=== PATIENT | male | born 1990 | race Caucasian/White ===

== ENCOUNTER → 2019-10-25 09:38 | Outpatient (CLI) | payer OTHER, SELFPAY ==
--- NOTE | 2019-10-25 | DI.MRI.S_ITS ---
PROCEDURE: MR LUMBAR SPINE WO/W CON INDICATIONS: Radiculopathy, lumbar region TECHNIQUE: Noncontrast sagittal T1 spin echo and T2 fast spin echo, sagittal STIR, axial T1 and T2 fast spin echo through the lumbar spine. In cases with scoliosis, additional coronal T2 fast spin echo may be performed. After the administration of contrast, sagittal and axial T1 spin echo with fat saturation through the lumbar spine. COMPARISON: None. FINDINGS: Image quality: Excellent. Alignment and curvature: There is normal bony alignment. Marrow: Marrow is of normal overall signal. No acute vertebral body compression fractures. No suspicious marrow enhancement. Spinal cord: Conus medullaris terminates at the L1 level. Visualized spinal cord demonstrates normal signal, without suspicious enhancement. Paraspinous soft tissues: No paravertebral masses or abnormal enhancement. T12-L1: Normal appearance. L1-L2: Normal appearance. L2-L3: Normal appearance. L3-L4: Normal appearance. L4-L5: The disc height and disc signal are relatively well-preserved. Mild disc bulge is seen. Sygz-mj-wehlavmn facet hypertrophy is seen. There is mild to moderate bilateral neural foraminal narrowing seen. Mild central canal narrowing is seen. L5-S1: Moderate disc bulge is seen, with a central disc extrusion, with an associated annular fissure. There is enhancement seen along the annular fissure. Mild to moderate facet hypertrophy is seen. There is mild to moderate right-sided and mild left-sided neural foraminal narrowing seen. Moderate central canal narrowing is seen. IMPRESSION: There is a focal disc extrusion seen at L5-S1, with associated degenerative change. Mild degenerative change is seen at L4-L5. Dictated by: Torey Rodrigues M.D. on 10/25/2019 at 10:55 Approved by: Torey Rodrigues M.D. on 10/25/2019 at 10:58
== END ==
PROVIDERS: PCP Family Medicine; Referring Provider Orthopaedic Surgery; Visit Provider Orthopaedic Surgery
DX: M51.17 Intervertebral disc disorders with radiculopathy, lumbosacral region (principal); M47.26 Other spondylosis with radiculopathy, lumbar region
CPT/HCPCS: 72158

== ENCOUNTER → 2020-01-17 08:23 | Outpatient (CLI) | payer OTHER, SELFPAY ==
[2020-01-17 09:51] LABS: Add Manual Diff / Slide Review NO; Basophils Absolute Auto 0 /uL (0-100); Basophils Percent Auto 0.2 % (0-2); Eosinophils Absolute Auto 200 /uL (0-450); Eosinophils Percent Auto 3.5 % (2-4); Hematocrit 41.6 % (41-53); Hemoglobin 14.4 g/dL (13.5-17.5); Lymphocytes Absolute Auto 2300 /uL (1100-4500); Lymphocytes Percent Auto 34.3 % (25-40); Mean Corpuscular HGB Conc 34.6 % (30-36); Mean Corpuscular Hemoglobin 32.4 PG (26-34); Mean Corpuscular Volume 93.6 fL (80-100); Monocytes Absolute Auto 600 /uL (0-900); Monocytes Percent Auto 9.4 % (3-14); Neutrophils Absolute Auto 3500 /uL (1500-7000); Neutrophils Percent Auto 52.6 % (50-75); Platelet Count 254 X10^3/uL (150-400); Red Blood Cell Count 4.44 X10^6/uL (4.5-5.9); Red Cell Distribution Width 12.9 % (11.6-14.8); White Blood Cell Count 6.7 X10^3/uL (4.5-11.0)
[2020-01-18 10:46] LABS: COVID19 Sendout NOT DETECTED (Not Detect)
== END ==
PROVIDERS: PCP Family Medicine; Referring Provider Orthopaedic Surgery; Visit Provider Registered Nurse
DX: Z11.59 Encounter for screening for other viral diseases (principal)
CPT/HCPCS: 36415; 85025; 87635

== ENCOUNTER 2020-01-19 09:57 | Day surgery (SDC) | payer OTHER, SELFPAY ==
[2020-01-16 13:03] VITALS: BMI 32.5
[2020-01-19] VITALS (18 sets, daily range): BP systolic 97–138; BP diastolic 58–84; PULSE 67–115; RESP 10–18; TEMP 35.9–37.2; O2SAT 94–99; BMI 32.5
--- NOTE | 2020-01-19 | DI.RAD.S_ITS ---
PROCEDURE: XR LUMBAR SPINE 2-3V INDICATIONS: L5-S1 TLIF TECHNIQUE: 2 views of the lumbar spine were acquired. COMPARISON: [facility], [place], XR LUMBAR SPINE 2 OR 3 VIEWS, 10/12/2019, 10:18. FINDINGS: Bones: Normal alignment established after L5-S1 posterior fusion by transverse pedicle screws and bilateral vertical fixation rods with a interbody disc cage prosthesis centrally at the L5-S1 disc level. Soft tissues: Overlying bowel gas pattern is normal. No suspicious soft tissue calcifications. IMPRESSION: Normal alignment established after L5-S1 fusion is noted. Dictated by: Chris Tavarez M.D. on 01/19/2020 at 14:36 Approved by: Chris Tavarez M.D. on 01/19/2020 at 14:37
[2020-01-19] MEDS: LACTATED RINGERS 1,000 ML 42 ML IV ×2 (10:17→13:27)
--- NOTE | 2020-01-19 10:47 | PM.PREOP ---
Pre-operative Note COVID-19 COVID-19 status: Negative Result date/Date tested (Pos, Neg/Pending): 01/17/20 Interval Note History & Physical reviewed/Exam performed by Physician: Yes Changes to H&P: No
[2020-01-19] MEDS: CEFAZOLIN 2 GM/100 ML FROZ.PIGGY IV ×2 (10:50→18:07)
[2020-01-19] MEDS: VANCOMYCIN 1,000 MG VIAL 1000 MG TOP (11:58)
[2020-01-19] MEDS: THROMBIN (RECOMBINANT) 5,000 UNIT VIAL 5000 UNIT TOP (11:59)
[2020-01-19] MEDS: SODIUM CHLORIDE 0.9% 1,000 ML, GENTAMICIN 80 MG IRR (11:59)
[2020-01-19] MEDS: BUPIVACAINE 0.5% (PF) 4 ML, MORPHINE-PF 4 MG, BUTORPHANOL 1 MG, fentaNYL 100 MCG INJ (12:00)
--- NOTE | 2020-01-19 12:02 | SUR.OPER ---
Prone on spine table, head in foam head support, padded chest and pelvic supports, gel pad at knees, lower legs supported by pillows; nipples, genitalia and toes free of pressure, arms secured on foam padded arm boards at <90 degrees abduction. Tape over blanket at thigh secured to table.
--- NOTE | 2020-01-19 14:02 | P.OP_ITS ---
Operative Date/Time/Diagnoses Date of procedure: 01/19/20 Time of procedure: 14:02 Pre-op diagnosis: History of lumbar laminectomy Recurrent lumbar disc herniation with radiculopathy Post-op diagnosis: same Procedure & Clinicians Procedure: L5-S1 TLIF (posterior/posterior interbody fusion) with cage L5-S1 screws Iliac crest bone graft aspirate Revision laminectomy L5-S1 Use of microscope Placement of epidural catheter Same procedure as scheduled: Yes Indications: [age] year old male with intractable pain from a recurrent disc herniation. They had failed conservative management and requested operative intervention. Risks and benefits of surgery were discussed and appropriate consents were obtained. Surgeon: Bashir Coyne [employer] Education Teacher: Lorraine Junior Anesthesia Type: General Operative Notes Findings: None Closure Type: primary Specimen(s): none sent Prosthetic devices, grafts, tissues, transplants, or devices: NuVasive MAS Reline screws Globus Rise cage Applied: catheter Estimated Blood Loss (mL): 75 Blood products transfused: none Procedure in detail: The patient was brought to the operating room and intubated on the table. A time-out was performed. They were then rolled over to the well- padded Akash table in the prone position. Preoperative antibiotics were given. The back was prepped and draped in the standard sterile fashion. Using fluoroscopy, a 4 cm longitudinal incision was made to the well-marked left of the midline. We used Bovie to come down to and split the lumbodorsal fascia. Using fluoroscopy and monitoring, we then percutaneously placed Jamshidi needles down the pedicles of L5 and S1 on the left side. These were changed out to guidewires and then we tapped and then placed the NuVasive MAS Reline screw shanks. We then opened up the retractors and used Bovie to clear up the posterolateral gutter as well as medially along the lamina to the spinous processes. A bur was used to decorticate the transverse processes. We brought in the microscope. Using a combination of bur and Kerrison rongeurs, a revision L5-S1 laminectomy and diskectomy was performed. We went to the midline but the scar prevented further decompression from there. We worked out laterally and exposed the dura and the nerve roots. These were retracted medially but we had to deal with scar tissue for this and carefully dissected them further medially clearing off the scar tissue. The disc was prepped with bipolar and an annulotomy was performed and the disc fragments were removed with the pituitary. This was separate and distinct from a TLIF approach as there was scar tissue and we had to work through this on the revision diskectomy. We then began the TLIF prep. A complete facetectomy was performed on this side at L5-S1. We carefully cleaned up the remainder of the foramen until we could easily retract the exiting root as well as clearing medially below the dura and expose the disc space. The disc was prepped with bipolar and then an annulotomy was performed. We performed a diskectomy using a combination of paddles, anurag, pituitaries, and curettes. We distracted the disc using a paddle and locked the retractor in an open position. We then filled the disc space with Osteocel bone graft. We then placed the globus Rise cage under fluoroscopy and then filled this in with more bone graft. The distraction on the retractor was released to compress down. This completed the posterior interbody fusion portion of the TLIF at L5-S1. We then placed the screw heads, lyle, and locked down the set screws. The wound was copiously irrigated. A small stab incision was made over the PSIS. We used a Jamshidi needle to aspirate several mL of bone marrow from the pelvis. This was mixed with the remaining Osteocel and combined with all of the locally harvested bone graft and placed in the posterolateral gutter for the posterior fusion of the TLIF at L5- S1. An epidural catheter was then placed in the spinal canal by carefully depressing the dura and advancing it 6 cm cephalad under the remaining lamina without resistance. The muscle fascia was closed. The catheter was then injected with a solution containing 4 mL of 0.5% Marcaine, 1 mg Stadol, 4 mg Duramorph, and 100 mcg of fentanyl. This was injected without resistance and the catheter was pulled. We then went to the opposite side. Again using fluoroscopy, a 3 cm incision was made and Bovie was used to come down to split the fascia. Using neural monitoring and fluoroscopy, Jamshidi needles were advanced down the pedicles of [] on the [] side. These were switched over guidewires, tapped, and screws placed. We then placed a lyle and locked the set screws on this side. The wound was irrigated. The fascia was closed. Vancomycin powder was placed in the wounds. The superficial and skin were closed. A sterile dressing was placed. The patient was then rolled over extubated and brought to recovery room without complications. Complications: none Post-operative Condition: stable Disposition: PACU Plan for aftercare: Overnight admission. Anticipate 2 days hospitalization time. Up with physical therapy.
[2020-01-19] MEDS: MEPERIDINE 100 MG/ML INJ 25 MG IV (14:15)
[2020-01-19] MEDS: fentaNYL 100 MCG/2 ML INJ IV ×2 (14:20→14:49)
[2020-01-19] MEDS: HYDROMORPHONE 2 MG INJ IV ×3 (14:42→15:11)
[2020-01-19] MEDS: LACTATED RINGERS 1,000 ML 125 ML IV (16:43)
[2020-01-19] MEDS: OXYCODONE IR 10 MG TABLET PO (16:43)
[2020-01-19] MEDS: hydrOXYzine pamoate 25 MG CAPSULE PO (18:07)
[2020-01-19] MEDS: HYDROMORPHONE 0.5 MG INJ IV (18:07)
[2020-01-19] MEDS: DOCUSATE 100 MG CAPSULE PO (20:02)
[2020-01-19] MEDS: GABAPENTIN 300 MG CAPSULE PO (20:02)
[2020-01-19] MEDS: SENNOSIDES 8.6 MG TABLET 17.2 MG PO (20:03)
[2020-01-19] MEDS: OXYCODONE IR 5 MG TABLET 15 MG PO ×2 (20:03→23:19)
[2020-01-20] MEDS: CEFAZOLIN 2 GM/100 ML FROZ.PIGGY IV (02:15)
[2020-01-20] MEDS: OXYCODONE IR 5 MG TABLET 15 MG PO ×5 (02:15→14:27)
[2020-01-20] MEDS: LACTATED RINGERS 1,000 ML 125 ML IV (02:17)
[2020-01-20 04:32] VITALS: BP 115/69; PULSE 97; RESP 18; TEMP 37.1; O2SAT 94
[2020-01-20 06:08] LABS: Hematocrit 39.5 % (41-53); Hemoglobin 13.8 g/dL (13.5-17.5)
[2020-01-20 08:00] VITALS: BP 130/63; PULSE 110; RESP 16; TEMP 36.6; O2SAT 95
[2020-01-20] MEDS: DOCUSATE 100 MG CAPSULE PO (08:20)
[2020-01-20] MEDS: ACETAMINOPHEN 325 MG TABLET 650 MG PO (08:20)
--- NOTE | 2020-01-20 10:17 | P.PN_ITS ---
Subjective Subjective Date Patient Seen: 01/20/20 Time Patient Seen: 10:17 Interval history: He is doing very well. Pain is about a 2/10 right now. No leg symptoms. He has been moving around in bed but not up with therapy yet. Exam Vital Signs (past 8 hours): - 01/20/20 04:32 01/20/20 08:00 Temperature 98.8 F 97.8 F Pulse Rate 97 H 110 H Respiratory Rate 18 16 Blood Pressure 115/69 130/63 Pulse Oximetry 94 95 Oxygen Delivery Method Room Air Oxygen Flow Rate 0 Const Orientation: alert and oriented x3 Back/Spine/Pelvis Other: Mild drainage. 5/5 motor both lower extremities Objective Labs Result Diagrams: 01/20/20 05:50 Labs: Laboratory Results - last 24 hr 01/20/20 05:50 Hgb 13.8 Hct 39.5 L Assessment & Plan Post-op Postoperative Procedures: Procedures Operation Date: 01/19/20 10:15 Actual Procedures Side Surgeon p L5S1 revision laminectomy & instrumentated fusion w. bone graft Bashir holland MD He is doing great. We're going to get him up with physical therapy. He feels like he is ready to go home and will discharge him a if he passes therapy. Quality VTE Deep Vein Thrombosis/Pulmonary Embolism Present on Admission: Yes
--- NOTE | 2020-01-20 11:09 | OT.IP.EVAL ---
Current Diagnoses Intervertebral disc disorders with radiculopathy, lumbar region (01/19/20) Strain of muscle, fascia and tendon of lower back, subsequent encounter (01/19/20) Other specified postprocedural states (01/19/20) Surgery Performed Operation Date: 01/19/20 10:15 Actual Procedures p L5S1 revision laminectomy & instrumentated fusion w. bone graft - Bashir Coyne MD Past Medical History (Last Updated 01/16/20 @ 13:07 by Mela Gannon RN) Arthritis (Acute) Sciatica of left side (Acute) Surgical History (Last Updated 01/16/20 @ 13:07 by Mela Gannon RN) History of photorefractive keratectomy (PRK) (Acute) Hx of laminectomy (Acute) Occupational Therapy Inpatient Evaluation/Re-Eval M1 PT/OT-IP Prior Functional Status Start: 01/20/20 14:02 Freq: NEEDED Status: Active Protocol: Document 01/20/20 14:04 [facility] (Rec: 01/20/20 14:31 [facility] [id number]) Medical Review Prior Functional Status Medical History Reviewed Yes Communication Independent Mobility and Gait Independent with no devices. Activities of Daily Living and IADL's Pt states needing increased time to tie his shoes. Prior Functional Level (Other details) Pt lives with his who is 8 1/ 2 months and 5 year old. Pt states his neighbors are able to assist as well for needs such as as taking out the trash or taking out the dogs. Social History Household Members spouse,children Living Arrangements House Number of Floors (Floors) One Floor Number of Stairs To Enter/Railing? 0 steps to enter. Home Environment High Toilet,Walk in Shower,Tub /Shower,Bidet Home Equipment Front Wheel Walker,Shower Seat with Backrest Employment Status Active Duty M2 OT-IP Current Condition Start: 01/20/20 14:02 Freq: Status: Active Protocol: Document 01/20/20 14:04 [facility] (Rec: 01/20/20 14:31 [facility] [id number]) Occupational Therapy Current Condition Current Condition Evaluation Date 01/20/20 Treatment Diagnosis Recurrent disc herniation with radiculopathy, S/P L5-S1 TLIF Diagnosis Onset Date 01/19/20 Post Operative Precautions Lumbar Precautions Log Roll,No Twisting,Limit Bending,Lifting Restriction of 10 lbs,Gait Belt above Incisional Area Weight Bearing Status Weight Bearing Status Weight Bear as Tolerated M3 OT- IP Subjective and Pain Start: 01/20/20 14:02 Freq: Status: Active Protocol: Document 01/20/20 14:04 [facility] (Rec: 01/20/20 14:31 [facility] [id number]) OT- Subjective Occupational Therapy Visit Type Type Initial Evaluation Visit Start Time 10:08 Visit Stop Time 11:09 Total Visit Minutes 59 Occupational Therapy Visit Comments Patient Comments Pt pleasant, cooperative and willing to get up for OT eval. 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 OT Pain Assessment Pain When Pain Assessed At Rest Pain Present Pain Present Pain Reported Location Lower Back Intensity 5 Scale Used Numeric (0 - 10) M4 OT- IP ADL's Start: 01/20/20 14:02 Freq: Status: Active Protocol: Document 01/20/20 14:04 [facility] (Rec: 01/20/20 14:31 [facility] [id number]) OT CHB-Jofb-Ioawoan General Evaluation Self-Feeding Ability Independent OT ADL-Grooming General Evaluation Grooming Ability Independent Comments OT Grooming Comments Vc to bend at his hips in order to spit into the sink. OT ADL-Oral Care General Eval Oral Care Ability Independent OT ADL-Dressing General Eval Lower Body Dressing Ability Maximum Assistance Assistive Devices Dressing Assistive Devices Long Handled Shoe Horn,Papier Mache Molder ,Sock Aid Comments OT Dressing Comments LB dressing training for use of radio broadcaster, sock aid and now able to do his socks on his own. Pt educated to jasmin his right LE first due to weakness and then for left LE. OT ADL-Toileting General Evaluation Toileting Ability Total Assistance Comments OT Toileting Comments Golden still in. Pt states has a bidet at home. Pt also educated easier to stand for hygiene needs. OT ADL-Bathing Comments OT Bathing Comments Pt not wanting to shower at this time. M5 OT- IP IADL's Start: 01/20/20 14:02 Freq: Status: Active Protocol: Document 01/20/20 14:04 [facility] (Rec: 01/20/20 14:31 [facility] [id number]) OT-Instrumental Activities of Daily Living Home Safety Awareness Awareness of Need for Assistance at Home Good Awareness Ability to Problem Solve Emergency Able to Problem Solve Situations Medication Management Medication Management No Deficits Identified Money Management Money Management No Deficits Identified Meal Preparation Meal Preparation Caregiver Provides Assist Group Home Supervisor Group Home Supervisor Caregiver Provides Assist Group Home Supervisor Comments Neighbors to assist. M6 OT- IP Functional Cognition Start: 01/20/20 14:02 Freq: Status: Active Protocol: Document 01/20/20 14:04 [facility] (Rec: 01/20/20 14:31 [facility] [id number]) Cognitive Factors Limiting Selfcare Function Cognitive Ability Level of Alertness Alert Patient Orientation Name,Age,Birthday,Month,Date, Year,Day of Week,Place, Situation Attention Span Ability Capable of Focused Attention, Capable of Sustained Attention Ability to Follow Commands Able to Follow Multi-Step Commands Memory Description No Deficits Noted Safety Awareness No Deficits Noted Problem Solving Ability No deficits Noted Cognitive Comments Cognitive Assessment Comments Pt doing well and only needing initial education for log rolling needs and to come from sit to stand to FWW. OT- Vision and Hearing OT- Hearing Assessment OT- Hearing Assessment WFL OT- Vision Assessment Visual Acuity WFL M7 OT- IP Mobility and Balance Start: 01/20/20 14:02 Freq: Status: Active Protocol: Document 01/20/20 14:04 [facility] (Rec: 01/20/20 14:31 [facility] [id number]) OT- Bed Mobility Assessment Rolling Level of Assistance Standby Assistance Supine to Sit Supine to Sit Assist Standby Assistance Sit to Supine Sit to Supine Assist Independent Scooting Scooting to Edge of Bed Independent OT-Transfer Assessment Sit to and From Stand Sit to and from Stand Standby Assistance Transfers Transfer Ability Standby Assistance Technique Transfer Destination Bed,Chair Transfer Technique Stand Step Pivot Devices Transfer Assistive Devices Gait Belt,Front Wheeled Walker Comments Mobility Comments VC for bed mobility initially. Pt plans to sleep on the recliner at home initially if needed. SBA with FWW, left leg tends to buckle and needing cues to keep his leg straight/tightened. OT- Gait Assessment Comments Gait Ability Comments SBA with FWW. OT- Balance Assessment Sitting Balance and Reactions Static Sitting Balance Ability Normal Dynamic Sitting Balance Ability Normal Standing Balance and Reactions Static Standing Balance Ability Normal Dynamic Standing Balance Ability Good M8 OT- IP Objective Assessments Start: 01/20/20 14:02 Freq: Status: Active Protocol: Document 01/20/20 14:04 [facility] (Rec: 01/20/20 14:31 [facility] [id number]) OT Gross Range of Motion Upper Extremity Range of Motion Assessment Within Functional Limits OT Strength Upper Extremity Strength Assessment Within Functional Limits OT-Muscle Tone Assessment Muscle Tone WNL Yes M9 OT- IP Assessment and Plan Start: 01/20/20 14:02 Freq: Status: Active Protocol: Document 01/20/20 14:04 [facility] (Rec: 01/20/20 14:31 [facility] [id number]) OT Summary Assessment and Plan Potential Rehabilitation Potential Good Analytic Complexity at Evaluation Low Summary OT Impairments Functional Mobility,Dressing, Toileting,Bathing,Shower Transfers Progress Towards Goals Progressing Toward Goals Assessment Summary Pt low complexity with main barriers are weakness in his legs, now needing use of adaptive equipment for LB dressing needs, and now will needing assist for IADL needs. Pt has good understanding for ADL needs and LB dressing equipment given. Pt to go home today with to assist . Goals Bathing Goal Independent Shower Transfer Goal Independent Patient/Caregiver Education Goal Demonstrate Post-Op Precautions Days to Meet Goals 1 Frequency of Treatment Frequency Of Treatment Once a Day Treatment Plan OT Treatment Plan ADL Training,Functional Mobility,Patient/Family Education,Discharge Planning Other Treatment Recommendations and Next Shower if still present. Treatment Focus Discharge Recommendations OT Discharge Recommendations Home with Assistance Transportation Needs at Discharge Private Vehicle
--- NOTE | 2020-01-20 11:28 | PT.IIE ---
Current Diagnoses Intervertebral disc disorders with radiculopathy, lumbar region (01/19/20) Strain of muscle, fascia and tendon of lower back, subsequent encounter (01/19/20) Other specified postprocedural states (01/19/20) Surgery Performed Operation Date: 01/19/20 10:15 Actual Procedures p L5S1 revision laminectomy & instrumentated fusion w. bone graft - Bashir Coyne MD Surgical History (Last Updated 01/16/20 @ 13:07 by Mela Gannon RN) History of photorefractive keratectomy (PRK) (Acute) Hx of laminectomy (Acute) Medical History (Last Updated 01/16/20 @ 13:07 by Mela Gannon RN) Arthritis (Acute) Sciatica of left side (Acute) Physical Therapy Inpatient Evaluation/Re-Eval M1 PT/OT-IP Prior Functional Status Start: 01/20/20 14:02 Freq: NEEDED Status: Active Protocol: Document 01/20/20 14:04 [facility] (Rec: 01/20/20 14:31 [facility] [id number]) Medical Review Prior Functional Status Medical History Reviewed Yes Communication Independent Mobility and Gait Independent with no devices. Activities of Daily Living and IADL's Pt states needing increased time to tie his shoes. Prior Functional Level (Other details) Pt lives with who is 8 1/ 2 months and 5 year old. Pt states his neighbors are able to assist as well for needs such as as taking out the trash or taking out the dogs. Social History Household Members spouse,children Living Arrangements House Number of Floors (Floors) One Floor Number of Stairs To Enter/Railing? 0 steps to enter. Home Environment High Toilet,Walk in Shower,Tub /Shower,Bidet Home Equipment Front Wheel Walker,Shower Seat with Backrest Employment Status Active Duty M1 PT/OT-IP Prior Functional Status Start: 01/20/20 14:34 Freq: NEEDED Status: Active Protocol: Document 01/20/20 11:28 AB (Rec: 01/20/20 14:56 AB [id number]) Medical Review Prior Functional Status Medical History Reviewed Yes Communication able to make needs known Mobility and Gait pt stated that he is independent with all mobilities and ambulation without AD Activities of Daily Living and IADL's per OT notes: Pt states needing increased time to tie his shoes. Prior Functional Level (Other details) Pt lives with who is 8 1/ 2 months and 5 year old daughter. Pt states his neighbors are able to assist when needed. Social History Household Members spouse,children Living Arrangements House Number of Floors (Floors) One Floor Number of Stairs To Enter/Railing? no steps to enter. Home Environment High Toilet,Walk in Shower,Tub /Shower,Bidet Home Equipment Front Wheel Walker,Shower Seat with Backrest,Hand Held Shower,Grab Bars Near Toilet, Grab Bars In Shower Employment Status Active Duty M2 PT-IP Current Condition Start: 01/20/20 14:34 Freq: NEEDED Status: Active Protocol: Document 01/20/20 11:28 AB (Rec: 01/20/20 14:56 AB [id number]) Physical Therapy Current Condition Current Condition Evaluation Date 01/20/20 Treatment Diagnosis s/p L5S1 TLIF; difficulty in walking Onset Date 01/19/20 Precautions Lumbar Precautions Log Roll,No Twisting,Limit Bending,Lifting Restriction of 10 lbs,Gait Belt above Incisional Area M3 PT-IP Subjective Start: 01/20/20 14:34 Freq: NEEDED Status: Active Protocol: Document 01/20/20 11:28 AB (Rec: 01/20/20 14:56 AB [id number]) Subjective Physical Therapy Visit Type Type Initial Evaluation Visit Start Time 11:28 Visit Stop Time 11:52 Total Visit Minutes 24 Number of BICYCLE REPAIRMAN Visits 0 Physical Therapy Visit Comments Patient Comments pt is agreeable to do PT Therapy Pain Assessment Pain When Pain Assessed At Rest Pain Present Pain Present Pain Reported Location Lower Back Intensity 6 Scale Used Numeric (0 - 10) Pain Management Techniques Modification of Treatment,Re- positioning,Timing of Activity with Medications M4 PT-IP Mobility and Gait Start: 01/20/20 14:34 Freq: NEEDED Status: Active Protocol: Document 01/20/20 11:28 AB (Rec: 01/20/20 14:56 AB [id number]) PT-Bed Mobility Assessment Rolling Type of Rolling Log Rolling Supine to Sit Supine to Sit Standby Assistance Sit to Supine Sit to Supine Standby Assistance Scooting Scooting to Edge of Bed Standby Assistance Scooting Up and Down in Bed Standby Assistance PT-Transfer Assessment Sit to and From Stand Sit to and from Stand Standby Assistance,1 Person Assistance,Use of Upper Extremities Equipment Transfer Assistive Device Gait Belt,Front Wheeled Walker Orthotic/Prosthetic Devices or Brace: No Transfers Transfer Destination Bed Transfer Technique Stand Step Pivot Transfer Ability Level of Assist Standby Assistance,1 Person Assistance,Use of Upper Extremities Comments Mobility Comments pt sitting on chair. completed sit to stand SBA but with difficulty and transferred to bed using fWW SBA. completed log roll supine <>sit SBA. educated pt on techniques for sit to stand but pt with (+) L knee buckling and has to rely a lot on BUE to get to standing. completed ambulation 40 + 250 ft using FWW SBA and cues for L quad activation. no LOB or knee giving out noted. pt ambulated back to his room and agreed to sit up on chair. call light and table placed within reach. Gait Assessment Gait Gait Assistance Required: Standby Assistance Distance (Feet) 250 Able to Maintain Weight Bearing Status Yes During Gait Assistive Devices Assistive Device Gait Belt,Front Wheeled Walker Orthotic/Prosthetic Devices or Brace: No Gait Deviations General Gait Pattern Antalgic,Decreased Stride Length,Decreased Feet Clearance Factors Limiting Gait Function Factors Limiting Gait Function Decreased Strength,Limited Range of Motion,Pain,Poor Balance M5 PT-IP Objective Assessments Start: 01/20/20 14:34 Freq: NEEDED Status: Active Protocol: Document 01/20/20 11:28 AB (Rec: 01/20/20 14:56 [id number]) Orientation Orientation/Cognition Level of Alertness Alert Orientation Name,Age,Birthday,Month,Date, Year,Day of Week,Place, Situation Language Function Ability No Deficits Noted Memory Description No Deficits Noted Gross Range of Motion Lower Extremity ROM Assessment Within Functional Limits Strength Lower Extremity Strength Assessment Bilaterally Impaired Comments Strength Comments RLE: 3+/5 LLE: 3-/5 Coordination Assessment Gross Coordination Gross Coordination WNL Sensation Assessment Sensation Gross Sensation WNL Muscle Tone Muscle Tone WNL Yes M6 PT-IP Treatment Start: 01/20/20 14:34 Freq: NEEDED Status: Active Protocol: Document 01/20/20 11:28 AB (Rec: 01/20/20 14:56 [id number]) Physical Therapy Treatment Education Education Provided Precautions,Weight Bearing Status,Post-Op Packet,Safety M7 PT-IP Assessment and Plan Start: 01/20/20 14:34 Freq: NEEDED Status: Active Protocol: Document 01/20/20 11:28 AB (Rec: 01/20/20 14:56 AB [id number]) PT Summary Assessment and Plan Potential Rehabilitation Potential Good Status of Condition at Evaluation Stable Summary Impairments Pain,ROM,Strength,Balance,Bed Mobility,Transfers,Gait, Activity Tolerance Assessment Summary pt requires SBA with mobility using FWW. pt presents with bilateral LE weakness with difficulty with sit to stand and L knee giving out x 1 during sit to stand. pt will require outpt PT for LE strengthening , balance and improving mobility. pt may go home with use of FWW and spouse will assist with needs Goals Bed Mobility Goal Independent Transfer Goal Independent,Front Wheeled Walker Gait Goal Independent,Front Wheel Walker Gait Distance 300 Days to Meet Goals 3 Frequency of Treatment Frequency Of Treatment Twice a Day Treatment Plan Physical Therapy Treatment Plan Bed Mobility Training,Transfer Training,Gait Training, Therapeutic Exercise,Balance Retraining,Post Op Education, Discharge Planning,Hot or Cold Pack,Neuromuscular Re-ed, Coordination Retraining,Manual Therapy Other Recommendations and Next Treatment ambulation Focus Recommendations To Nursing Amount of Assist Needed 1 Person Assist Discharge Recommendations PT Discharge Recommendations Home with Assistance, Outpatient PT Transportation Needs at Discharge Private Vehicle
[2020-01-20 12:00] VITALS: BP 121/76; PULSE 100; RESP 16; TEMP 36.8; O2SAT 96
--- NOTE | 2020-01-20 14:44 | PT.IPTN ---
Current Diagnoses Intervertebral disc disorders with radiculopathy, lumbar region (01/19/20) Strain of muscle, fascia and tendon of lower back, subsequent encounter (01/19/20) Other specified postprocedural states (01/19/20) Surgery Performed Operation Date: 01/19/20 10:15 Actual Procedures p L5S1 revision laminectomy & instrumentated fusion w. bone graft - Bashir Coyne MD Physical Therapy Treatment Note M2 PT-IP Current Condition Start: 01/20/20 14:34 Freq: NEEDED Status: Discharge Protocol: Document 01/20/20 11:28 AB (Rec: 01/20/20 14:56 AB [id number]) Physical Therapy Current Condition Current Condition Evaluation Date 01/20/20 Treatment Diagnosis s/p L5S1 TLIF; difficulty in walking Onset Date 01/19/20 Precautions Lumbar Precautions Log Roll,No Twisting,Limit Bending,Lifting Restriction of 10 lbs,Gait Belt above Incisional Area M3 PT-IP Subjective Start: 01/20/20 14:34 Freq: NEEDED Status: Active Protocol: Document 01/20/20 14:24 KS (Rec: 01/20/20 15:31 KS [email or web address]) Subjective Physical Therapy Visit Type Type Treatment Note Visit Start Time 14:24 Visit Stop Time 14:44 Total Visit Minutes 20 Number of BIODIESEL TECHNOLOGY MANAGER Visits 1 Physical Therapy Visit Comments Patient Comments pt is agreeable to do PT Therapy Pain Assessment Pain When Pain Assessed At Rest Pain Present Pain Present Pain Reported M4 PT-IP Mobility and Gait Start: 01/20/20 14:34 Freq: NEEDED Status: Active Protocol: Document 01/20/20 14:24 [place] (Rec: 01/20/20 15:31 KS [email or web address]) PT-Bed Mobility Assessment Rolling Type of Rolling Log Rolling,Roll to Left Supine to Sit Supine to Sit Standby Assistance Sit to Supine Sit to Supine Standby Assistance Scooting Scooting to Edge of Bed Standby Assistance PT-Transfer Assessment Sit to and From Stand Sit to and from Stand Standby Assistance,1 Person Assistance,Use of Upper Extremities Equipment Transfer Assistive Device Gait Belt,Front Wheeled Walker Orthotic/Prosthetic Devices or Brace: No Transfers Transfer Destination Bed,Chair Transfer Technique Pt ambulated w/ FWW Transfer Ability Level of Assist Standby Assistance,1 Person Assistance,Use of Upper Extremities Comments Mobility Comments Pt was in chair upon arrival from therapy. Pt ambulated to bed w/ FWW SBA. Pt uses BUE to lower into bed to avoid L knee buckling. SBA for logroll into and out of bed. Pt unable to shift hips in bed d/ t pain, but able to use UE to reposition. Pt SBA for sidelying<>sit. He then ambulated to window and back to chair w/ FWW SBA. Pt able to recall 3/3 spinal precautions. Pt left in room w / all needs in reach. Gait Assessment Gait Gait Assistance Required: Standby Assistance Distance (Feet) 10 Able to Maintain Weight Bearing Status Yes During Gait Assistive Devices Assistive Device Gait Belt,Front Wheeled Walker Orthotic/Prosthetic Devices or Brace: No Gait Deviations General Gait Pattern Antalgic,Decreased Stride Length,Decreased Feet Clearance Factors Limiting Gait Function Factors Limiting Gait Function Decreased Strength,Limited Range of Motion,Pain,Poor Balance Comments Gait Comments Please refer to mobility section for details. M5 PT-IP Objective Assessments Start: 01/20/20 14:34 Freq: NEEDED Status: Discharge Protocol: Document 01/20/20 11:28 AB (Rec: 01/20/20 14:56 AB [id number]) Orientation Orientation/Cognition Level of Alertness Alert Orientation Name,Age,Birthday,Month,Date, Year,Day of Week,Place, Situation Language Function Ability No Deficits Noted Memory Description No Deficits Noted Gross Range of Motion Lower Extremity ROM Assessment Within Functional Limits Strength Lower Extremity Strength Assessment Bilaterally Impaired Comments Strength Comments RLE: 3+/5 LLE: 3-/5 Coordination Assessment Gross Coordination Gross Coordination WNL Sensation Assessment Sensation Gross Sensation WNL Muscle Tone Muscle Tone WNL Yes M6 PT-IP Treatment Start: 01/20/20 14:34 Freq: NEEDED Status: Active Protocol: Document 01/20/20 14:24 KS (Rec: 01/20/20 15:31 KS [email or web address]) Physical Therapy Treatment Education Education Provided Precautions,Weight Bearing Status,Post-Op Packet,Safety Other Treatments Other Treatment Performed Core stabilization education, discussed proper positioning while in bed for spinal support and alignment M7 PT-IP Assessment and Plan Start: 01/20/20 14:34 Freq: NEEDED Status: Active Protocol: Document 01/20/20 14:24 KS (Rec: 01/20/20 15:31 KS [id number]) PT Summary Assessment and Plan Potential Rehabilitation Potential Good Status of Condition at Evaluation Stable Summary Impairments Pain,ROM,Strength,Balance,Bed Mobility,Transfers,Gait, Activity Tolerance Assessment Summary Pt is SBA for transfers, logroll, and ambulation w/ FWW . Pt has good safety awareness and uses specific techniques to avoid L knee buckling. Relies heavily on BUE strength for sit<>stand<>sit. Pt will benefit from outpatient rehab to improve strength and mobility. Goals Bed Mobility Goal Independent Transfer Goal Independent,Front Wheeled Walker Gait Goal Independent,Front Wheel Walker Gait Distance 300 Days to Meet Goals 3 Frequency of Treatment Frequency Of Treatment Twice a Day Treatment Plan Physical Therapy Treatment Plan Bed Mobility Training,Transfer Training,Gait Training, Therapeutic Exercise,Balance Retraining,Post Op Education, Discharge Planning,Hot or Cold Pack,Neuromuscular Re-ed, Coordination Retraining,Manual Therapy Recommendations To Nursing Amount of Assist Needed 1 Person Assist Discharge Recommendations PT Discharge Recommendations Home with Assistance, Outpatient PT Transportation Needs at Discharge Private Vehicle
--- NOTE | 2020-01-20 14:55 | PC.NURSE ---
DISCHARGE: PATIENT DID GREAT ALL SHIFT. VOIDED 200 CC'S AFTER BARRETT REMOVAL. PAIN WELL CONTROL W/ OXYCODONE. CLEARED PHYSICAL THERAPY FOR DC HOME. REVIEWED ALL [facility] HOME PAPERWORK W/ PATIENT, PROVIDED SCRIPTS, DISCUSSED ACTIVITY RESTRICTIONS, PREVENTION OF CONSTIPATION, TITRATING BACK ON PAIN MEDS TOLERATED. PATIENT CONFIRMS UNDERSTANDING OF ALL INSTRUCTIONS. TAKEN BY WC W/ HOME SALES SERVICE PROFESSIONAL ESCORT TO VEHICLE IN NO S/SX'S OF DISTRESS W/ ALL BELONGINGS AND PAPERWORK. SPOUSE MET PATIENT TO DRIVE HIM HOME.
== END 2020-01-20 14:58 | disposition home or self-care (01) ==
LOC: OR 09:58 → AC 11:00
PROVIDERS: PCP Family Medicine; Referring Provider Orthopaedic Surgery; Visit Provider Orthopaedic Surgery
PROC: (CPT 22633; principal; 2020-01-19 10:15)
DX: M51.16 Intervertebral disc disorders with radiculopathy, lumbar region (principal); S39.012D Strain of muscle, fascia and tendon of lower back, subsequent encounter; Z98.890 Other specified postprocedural states
CPT/HCPCS: 22633; 22853; 22840; 20939; 63042; 36415; 72100; 76000; 85014; 85018; 97161; 97165; 97530; 97535; C1776; J0330; J0595; J0690; J1100; J1170; J2175; J2274; J2405; J2704; J3010

== ENCOUNTER → 2021-01-11 07:30 | Outpatient (CLI) | payer OTHER, SELFPAY ==
[2020-01-19 17:55] VITALS: BMI 32.5
--- NOTE | 2021-01-11 | DI.MRI.S_ITS ---
PROCEDURE: MR LUMBAR SPINE WO CON INDICATIONS: Low back pain TECHNIQUE: Noncontrast sagittal T1 spin echo and T2 fast echo, sagittal STIR, axial T1 and T2 fast spin echo through the lumbar spine. In cases with scoliosis, additional coronal T2 fast spin echo may be performed. COMPARISON: None. FINDINGS: Image quality: Excellent. Alignment and Curvature: Normal lumbar vertebral body height and alignment. Bone Marrow: No suspicious focal marrow signal abnormality or bone marrow edema. Spinal Cord: Normal morphology and signal intensity of the conus, terminating in a normal position at the superior L1 level. Regional Soft Tissues: No prevertebral or paraspinous soft tissue mass. The included unenhanced retroperitoneal visceral structures demonstrate no acute finding. T12-L1: No spinal canal or neural foraminal stenosis. L1-L2: No spinal canal or neural foraminal stenosis. L2-L3: No spinal canal or neural foraminal stenosis. L3-L4: No spinal canal or neural foraminal stenosis. Trace disc bulge minimally flattens the ventral thecal sac without mass effect upon the descending L4 nerve roots. L4-L5: Diffuse disc bulge and a superimposed broad-based posterior disc protrusion flatten and indent the ventral thecal sac. Disc material abuts and may slightly displace the descending L5 nerve roots within both subarticular zones. Foraminal components of the disc bulge and facet hypertrophy combine to produce mild bilateral neural foraminal narrowing. There are small facet effusions. L5-S1: Postsurgical changes of posterior fixation by means of bilateral rods and pedicle screws. Grossly normal MR appearance of the hardware. There is fluid signal in the posterior aspect of the intervertebral disc consistent with a sizable annular fissure. Diffuse disc bulge flattens the ventral thecal sac mildly displacing the descending right S1 nerve roots within the right subarticular zone. No neural foraminal stenosis. IMPRESSION: Postsurgical changes of L5-S1 posterior fixation. Posterior disc bulge at L5-S1 with displacement of the descending right S1 nerve roots within the right subarticular zone. Correlate for any right S1 radicular symptoms. Milder degenerative changes at L4-L5 with no evidence of focal nerve root impingement. Facet osteoarthropathy from L3-L4 through L5-S1, most pronounced at L4-L5 where is there are small facet fusions. These is a potential source of nonradicular axial back pain. Dictated by: Francisco Gonzales M.D. on 01/11/2021 at 8:42 Approved by: Francisco Gonzales M.D. on 01/11/2021 at 8:47
== END ==
PROVIDERS: PCP Family Medicine; Referring Provider Orthopaedic Surgery; Visit Provider Orthopaedic Surgery
DX: M54.5 Low back pain (principal)
CPT/HCPCS: 72148